=== PATIENT | female | born 1945 | race Caucasian/White ===

== ENCOUNTER 2017-01-19 11:08 | Emergency (ER) | payer OTHER ==
[~2017-01-19] VITALS: Wt 90.7 kg
[~2017-01-19 11:08] MED LIST: AMLODIPINE5 MG PO; FLOVENT0.044 MG/A INH; MOBIC15 MG PO; NEXIUM40 MG PO
[2017-01-19 11:40] LABS: BASO # 0.1 10*3/uL (0.0-0.1); BASO % 0.9 % (0.0-1.0); EOS # 0.1 10*3/uL (0.0-0.4); EOS % 1.6 % (1.0-4.0); HEMATOCRIT 42.3 % (37.0-47.0); HEMOGLOBIN 13.4 g/dl (12.0-16.0); LYMPH # 1.5 10*3/uL (1.3-4.4); LYMPH % 22.8 % (27.0-41.0); MEAN CELL VOLUME 93.2 fl (81.0-99.0); MEAN CORPUSCULAR HGB 29.5 pg (27.0-31.0); MEAN CORPUSCULAR HGB CONC 31.7 g/dl (33.0-37.0); MEAN PLATELET VOLUME 10.1 fl (9.6-12.3); MONO # 0.4 10*3/uL (0.1-1.0); MONO % 6.5 % (3.0-9.0); NEUT # 4.6 10*3/uL (2.3-7.9); NEUT % 67.9 % (47.0-73.0); PLATELET COUNT AUTOMATED 247 10*3/uL (130-400); RED BLOOD COUNT 4.54 10*6/uL (4.10-5.10); RED CELL DISTRI WIDTH 14.4 % (0-14.5); WHITE BLOOD COUNT 6.8 10*3/uL (4.8-10.8)
[2017-01-19] MEDS ORDERED: GABAPENTIN100 M2 PO (11:46)
[2017-01-19] MEDS ORDERED: TRAMADOL HCL50 MG PO (11:46)
[2017-01-19] MEDS ORDERED: ZOLOFT25 MG PO (11:46)
[2017-01-19 11:49] LABS: PROTHROMBIN TIME 10.8 SECONDS (9.0-12.4)
[2017-01-19 11:54] LABS: ALBUMIN 3.5 gm/dl (3.1-4.5); BILIRUBIN, TOTAL 0.4 mg/dl (0.2-1.0); MAGNESIUM 2.2 mg/dL (1.5-2.1); POTASSIUM 3.6 mmol/L (3.5-5.1); TOTAL PROTEIN 7.2 gm/dL (6.4-8.2)
== END 2017-01-19 13:46 | disposition home or self-care (01) ==
LOC: ED 11:08
PROVIDERS: Emergency Medicine
DX: R04.0 Epistaxis (principal); Z79.899 Other long term (current) drug therapy

== ENCOUNTER 2017-11-08 10:49 | Emergency (ER) | payer OTHER ==
[~2017-11-08] VITALS: Ht 160 cm; Wt 86.2 kg
[~2017-11-08 10:49] MED LIST changes: +GABAPENTIN100 M2 PO; +TRAMADOL HCL50 MG PO; +ZOLOFT25 MG PO
[2017-11-08] MEDS ORDERED: HYDROCHLOROTHIA25 M1 PO (12:43)
[2017-11-08] MEDS ORDERED: SERTRALINE HYD100 MG PO (12:44)
[2017-11-08] MEDS ORDERED: NEURONTIN300 MG PO (12:45)
== END 2017-11-08 14:55 | disposition short-term general hospital (02) ==
LOC: ED 10:49
DX: S52.592A Other fractures of lower end of left radius, initial encounter for closed fracture (principal); Z79.899 Other long term (current) drug therapy; W19.XXXA Unspecified fall, initial encounter; Y93.89 Activity, other specified; Y92.009 Unspecified place in unspecified non-institutional (private) residence as the place of occurrence of the external cause; Y99.8 Other external cause status